=== PATIENT | male | born 1940 | race Caucasian/White ===

== ENCOUNTER 2022-10-03 07:57 | Day surgery (SDC) | payer MEDICARE ==
[2022-10-01 11:29] VITALS: BMI 29.5
[~2022-10-03 07:57] MED LIST: Dexamethasone 20 MG/5 ML VIAL ONE; EPINEPHrine 1 MG/ML AMP ONE; Fentanyl 250 MCG/5 ML VIAL ONE; Lidocaine 1% PF 5 ML VIAL ONE; Midazolam HCl 2 mg/2 ml Vial ONE; Mupirocin 2% Ointment 22 GM Tube ONE; Ondansetron PF 4 MG/2 ML Vial ONE; PROPOFOL 20 ML ONE; Phenylephrine 10 MG/ML VIAL ONE; Rocuronium Bromide 10 MG/ML (10ML VIAL) ONE
[2022-10-03] MEDS ORDERED: CEFAZOLIN 2 GM VIAL ONE (08:36)
[2022-10-03] MEDS ORDERED: ePHEDrine Sulfate 50 MG/10 ML VIAL ONE (09:12)
[2022-10-03] MEDS ORDERED: Glycopyrrolate 0.2 MG/ML 5 ML SYRINGE ONE (09:12)
== END 2022-10-03 12:45 | disposition home or self-care (01) ==
LOC: CSHSDC 07:57
PROVIDERS: ATTEND Otolaryngology Plastic Surgery within the Head & Neck
PROC: F0BZ09Z Cochlear Implant Rehabilitation Treatment using Cochlear Implant Equipment (ICD-10-PCS; principal; 2022-10-03)
DX: H90.3 Sensorineural hearing loss, bilateral (principal); I10 Essential (primary) hypertension; K21.9 Gastro-esophageal reflux disease without esophagitis; E11.9 Type 2 diabetes mellitus without complications; Z88.5 Allergy status to narcotic agent; Z79.899 Other long term (current) drug therapy; Z79.84 Long term (current) use of oral hypoglycemic drugs
CPT/HCPCS: 69930; 70250; L8614 ×2; Q9968; J0171; J1100; J2250; J2370; J2405; J2704; J3010